=== PATIENT | female | born 1965 | race Caucasian/White ===

== ENCOUNTER 2017-12-16 13:06 | Emergency (ER) | payer BC, OTHER ==
[~2017-12-16] VITALS: Ht 160 cm; Wt 81.6 kg
[2017-12-16 13:20] VITALS: BP 150/89
--- NOTE | 2017-12-16 13:51 | NUR ---
PT IS A 52 YO F BIB FAMILY AFTER BEING REFFERED OVER FROM PCP THIS MORNING FOR U/S TO MAKE SURE SHE DOES NOT HAVE BLOOD CLOTS IN HER LEGS S/P SURGERY. PT HAD SPINAL SURGERY NOVEMBER 05, AND HAS SINCE HAD SOME BILATERAL LEG SWELLING. PT PRESENTS WITH BILATERAL ANKLE AND CALF SWELLING. +1 PITTING EDEMA ON THE ANKLE. PT REPORT CHILLS OFF AND ON, DENIES AT THIS TIME. DENIES N/V/D. AAOX4. GCS 15. RR EVEN AND UNLABORED, DENIES SOB. ER MD NOTIFIED. WILL CONTINUE TO MONITOR.
--- NOTE | 2017-12-16 13:57 | NUR ---
ULTRASOUND AT BEDSIDE AT THIS TIME. WILL CONTINUE TO MONITOR.
[2017-12-16 14:44] LABS: BASOPHILS % (AUTO) 0.2 % (0.0-2.0); EOSINOPHILS # (AUTO) 0.1 K/uL (0-0.4); EOSINOPHILS % (AUTO) 0.9 % (0.0-4.0); HEMATOCRIT 36.8 % (36-48); HEMOGLOBIN 12.1 g/dL (12.0-16.0); LYMPHOCYTES # (AUTO) 2.8 K/uL (2.5-16.5); LYMPHOCYTES % (AUTO) 33.6 % (20.5-51.1); MEAN CORPUSCULAR HEMOGLOBIN 31 pg (27-31); MEAN CORPUSCULAR HGB CONC 33 g/dL (33-37); MEAN CORPUSCULAR VOLUME 93.5 fL (80-94); MONOCYTES # (AUTO) 0.6 K/uL (0.8-1.0); MONOCYTES % (AUTO) 7.2 % (1.7-9.3); NEUTROPHILS # (AUTO) 4.9 K/uL (1.8-7.7); NEUTROPHILS % (AUTO) 58.1 % (42.2-75.2); PLATELET COUNT (AUTO) 280 K/uL (140-450); RED BLOOD CELL COUNT(AUTO) 3.94 MIL/uL (4.20-5.40); RED CELL DISTRIBUTION WIDTH 14.5 % (11.6-13.7); WHITE BLOOD COUNT (AUTO) 8.4 K/uL (4.8-10.8)
--- NOTE | 2017-12-16 14:50 | NUR ---
PT. RESTING COMFORTABLY IN BED, RR EVEN AND UNLABORED, ABLE TO VERBALIZE. WILL CONTINUE TO MONITOR.
[2017-12-16] MEDS ORDERED: FUROSEMIDE 20 MG TAB PO ONE (15:10)
[2017-12-16] MEDS ORDERED: KETOROLAC 30 MG/ML VIAL IM ONE (15:15)
[2017-12-16 15:16] LABS: PROTHROMBIN TIME 9.2 secs (10.8-13.4)
[2017-12-16 15:22] LABS: CARBON DIOXIDE 26.6 mmol/L (21-32); CREATININE 0.6 mg/dL (0.6-1.3); POTASSIUM 3.6 mmol/L (3.5-5.1)
[2017-12-16 15:30] LABS: ALBUMIN 3.6 g/dL (3.4-5.0); TOTAL BILIRUBIN 0.2 mg/dL (0.0-1.0)
[2017-12-16 15:40] VITALS: BP 140/80
--- NOTE | 2017-12-16 15:40 | NUR ---
Patient discharged with v/s stable. Written and verbal after care instructions given and explained. Patient alert, oriented and verbalized understanding of instructions. Ambulatory with steady gait. All questions addressed prior to discharge. ID band removed. Patient advised to follow up with PMD. Rx of LASIX 20 MG given. Patient educated on indication of medication including possible reaction and side effects. Opportunity to ask questions provided and answered.
== END 2017-12-16 15:40 | disposition home or self-care (01) ==
LOC: MED 13:06
DX: R60.0 Localized edema (principal); M79.604 Pain in right leg; M79.605 Pain in left leg; Z88.0 Allergy status to penicillin; Z88.2 Allergy status to sulfonamides
CPT/HCPCS: 36415; 80053; 83880; 85025; 85610; 85730; 93970; 96372; 99285; J1885; Q0092

== ENCOUNTER 2018-03-26 15:08 | Emergency (ER) | payer BC, OTHER ==
[~2018-03-26] VITALS: Ht 160 cm; Wt 86.2 kg
[2018-03-26 15:09] VITALS: BP 147/94
[2018-03-26] MEDS ORDERED: traMADol 50 MG TAB PO ONE (16:35)
[2018-03-26] MEDS ORDERED: IBUPROFEN 600 MG TAB PO ONE (16:35)
[2018-03-26] MEDS ORDERED: HYDROcodone/APAP 10/325 MG 1 TAB TAB PO STA (17:40)
[2018-03-26] MEDS ORDERED: KETOROLAC 60 MG/2 ML VIAL IM ONE (18:25)
[2018-03-26 18:58] VITALS: BP 122/78
== END 2018-03-26 18:58 | disposition home or self-care (01) ==
LOC: MED 15:08
DX: G89.29 Other chronic pain (principal); M54.5 Low back pain; Z88.0 Allergy status to penicillin; Z88.2 Allergy status to sulfonamides
CPT/HCPCS: 96372; 99284; J1885

== ENCOUNTER 2019-02-05 21:41 | Emergency (ER) | payer BC ==
[~2019-02-05] VITALS: Ht 160 cm; Wt 76.2 kg
[2019-02-05 21:45] VITALS: BP 170/90
[2019-02-05] MEDS ORDERED: KETOROLAC 60 MG/2 ML VIAL IM ONE (23:35)
[2019-02-05 23:55] VITALS: BP 170/90
== END 2019-02-05 23:55 | disposition home or self-care (01) ==
LOC: MED 21:41
DX: B35.3 Tinea pedis (principal); L03.115 Cellulitis of right lower limb; Z88.0 Allergy status to penicillin; Z88.2 Allergy status to sulfonamides; I10 Essential (primary) hypertension; Z87.39 Personal history of other diseases of the musculoskeletal system and connective tissue; Z98.890 Other specified postprocedural states
CPT/HCPCS: 73630; 96372; 99283; J1885

== ENCOUNTER 2020-11-05 17:13 | Emergency (ER) | payer BC ==
[~2020-11-05] VITALS: Ht 160 cm; Wt 79.4 kg
[2020-11-05 17:40] VITALS: BP 164/101
--- NOTE | 2020-11-05 17:47 | NUR ---
EDMOND. HANDED ON URINE CUP.
--- NOTE | 2020-11-05 18:50 | NUR ---
PT AMB TO BED 6
--- NOTE | 2020-11-05 18:52 | NUR ---
YOSSI Noland is evaluating patient at bedside.
--- NOTE | 2020-11-05 19:07 | NUR ---
Dr. Darling is evaluating the patient at bedside.
[2020-11-05] MEDS ORDERED: KETOROLAC 60 MG/2 ML VIAL IM ONE (19:10)
--- NOTE | 2020-11-05 19:31 | NUR ---
PT BEING TAKEN TO XRAY VIA [facility].
[2020-11-05] MEDS ORDERED: ACET-9529 PO (21:10)
[2020-11-05 21:28] VITALS: BP 162/93
== END 2020-11-05 21:28 | disposition home or self-care (01) ==
LOC: MED 17:13
DX: M54.5 Low back pain (principal); G89.29 Other chronic pain; M54.2 Cervicalgia; I10 Essential (primary) hypertension; Z98.890 Other specified postprocedural states; Z79.891 Long term (current) use of opiate analgesic; Z88.0 Allergy status to penicillin; Z88.2 Allergy status to sulfonamides
CPT/HCPCS: 72040; 72072; 72100; 81002; 87086; 96372; 99284; J1885

== ENCOUNTER 2021-03-25 15:22 | Emergency (ER) | payer BC ==
[~2021-03-25] VITALS: Ht 160 cm; Wt 81.6 kg
[~2021-03-25 15:22] MED LIST: ACET-9529 PO
[2021-03-25 15:43] VITALS: BP 191/101
--- NOTE | 2021-03-25 16:15 | NUR ---
REFER FROM CLINIC FOR LOWER EXTREMITY SWELLING AND SOB S/P LUMBAR SPINE SURGERY. C/O RIGHT LEG & RIGHT FOOT PAIN & SWELLING X YESTERDAY. O2 SAT 100%, BP 191/101 AT THIS TIME. PMH: SPINAL CORD SURGERY , HLD
[2021-03-25] MEDS ORDERED: KETOROLAC 30 MG/ML VIAL IM ONE (16:20)
--- NOTE | 2021-03-25 16:45 | NUR ---
56 Y/O F HERE FOR R AND L FOOT SWELLING SINCE YESTERDAY. SHE HAD LUMBAR SPINE SURGERY A MONTH AGO AND WENT TO CLINIC TODAY TO GET CHECKED AND THE CLINIC TOLD HER TO GO TO ED. SHE HAS R ANCKLE SWELLING MORE THEN A LEFT SIDE. SHE CURRENTLY HAS HIGH BP OF 191/101.
--- NOTE | 2021-03-25 16:49 | NUR ---
XRAY AT BEDSIDE.
--- NOTE | 2021-03-25 16:50 | NUR ---
ULTRASOUND AT BEDSIDE.
[2021-03-25 17:11] LABS: BASOPHILS % (AUTO) 0.4 % (0.0-2.0); EOSINOPHILS % (AUTO) 0.4 % (0.0-4.0); HEMATOCRIT 38.3 % (36-48); HEMOGLOBIN 12.7 g/dL (12.0-16.0); LYMPHOCYTES # (AUTO) 1.8 K/uL (2.5-16.5); LYMPHOCYTES % (AUTO) 21.6 % (20.5-51.1); MEAN CORPUSCULAR HEMOGLOBIN 31 pg (27-31); MEAN CORPUSCULAR HGB CONC 33 g/dL (33-37); MONOCYTES # (AUTO) 0.4 K/uL (0.8-1.0); MONOCYTES % (AUTO) 4.5 % (1.7-9.3); NEUTROPHILS # (AUTO) 6.1 K/uL (1.8-7.7); NEUTROPHILS % (AUTO) 73.1 % (42.2-75.2); PLATELET COUNT (AUTO) 260 K/uL (140-450); RED BLOOD CELL COUNT(AUTO) 4.16 MIL/uL (4.20-5.40); RED CELL DISTRIBUTION WIDTH 13.9 % (11.6-13.7); WHITE BLOOD COUNT (AUTO) 8.4 K/uL (4.8-10.8)
[2021-03-25 17:26] VITALS: BP 172/76
[2021-03-25 17:32] LABS: ANION GAP 11.4 (8-16); CARBON DIOXIDE 29.4 mmol/L (21-32); CREATININE 0.7 mg/dL (0.6-1.3); POTASSIUM 3.8 mmol/L (3.5-5.1); TOTAL BILIRUBIN 0.4 mg/dL (0.0-1.0)
--- NOTE | 2021-03-25 19:05 | NUR ---
Patient discharged with v/s stable. Written and verbal after care instructions given and explained. Patient verbalized understanding. Ambulatory with steady gait. All questions addressed prior to discharge. Advised to follow up with PMD.
--- NOTE | 2021-03-25 19:06 | NUR ---
The patient's care was reviewed and supervised by Jyothi Chung RN.
== END 2021-03-25 19:05 | disposition home or self-care (01) ==
LOC: MED 15:22
DX: R22.41 Localized swelling, mass and lump, right lower limb (principal); R06.02 Shortness of breath; I10 Essential (primary) hypertension; Z98.890 Other specified postprocedural states; Z79.891 Long term (current) use of opiate analgesic; Z88.0 Allergy status to penicillin; Z88.2 Allergy status to sulfonamides
CPT/HCPCS: 36415; 71045; 80053; 83880; 84484; 85025; 93005; 93971; 96372; 99285; J1885; Q0092

== ENCOUNTER 2022-12-28 22:15 | Emergency (ER) | payer BC ==
[~2022-12-28] VITALS: Ht 160 cm; Wt 68.0 kg
[2022-12-28 22:57] VITALS: BP 189/90; PULSE 58; RESP 20; TEMP 98; O2SAT 98
[2022-12-28] MEDS ORDERED: FLUORESCEIN OPTH STRIP 1 MG OP ONE (23:40)
[2022-12-28] MEDS ORDERED: TETRACAINE HCL/PF 0.5% OPTH 4 ML BTL OP ONE (23:40)
[2022-12-28] MEDS ORDERED: KETOROLAC 30 MG/ML VIAL IM ONE (23:50)
[2022-12-29] MEDS ORDERED: ERYTHROMYCIN 0.5% OPTH OINT 1 GM TUBE OP ONE (00:40)
[2022-12-29] MEDS ORDERED: FLUORESCEIN OPTH STRIP 1 MG ONE (01:57)
[2022-12-29] MEDS ORDERED: TETRACAINE HCL/PF 0.5% OPTH 4 ML BTL OP ONE (02:10)
[2022-12-29] MEDS ORDERED: ERYT2GEL22 TP (02:44)
== END 2022-12-29 03:00 | disposition home or self-care (01) ==
LOC: MED 22:15
DX: H16.002 Unspecified corneal ulcer, left eye (principal); H10.212 Acute toxic conjunctivitis, left eye; I10 Essential (primary) hypertension; Z88.0 Allergy status to penicillin; Z88.2 Allergy status to sulfonamides; Z79.899 Other long term (current) drug therapy
CPT/HCPCS: 96372; 99283; J1885

== ENCOUNTER 2023-04-18 14:39 | Emergency (ER) | payer BC, OTHER ==
[~2023-04-18] VITALS: Ht 160 cm; Wt 69.6 kg
[~2023-04-18 14:39] MED LIST changes: +ERYT2GEL22 TP
[2023-04-18 15:01] VITALS: BP 167/87; PULSE 74; RESP 17; TEMP 97.6; O2SAT 99
[2023-04-18] MEDS ORDERED: KETOROLAC 30 MG/ML VIAL IM ONE (15:55)
[2023-04-18] MEDS ORDERED: DICYCLOMINE HCL LIQUID 20 MG, ALUMINUM HYD/MAG/SIMETHICONE 30 ML, LIDOCAINE VISCOUS 2% ... PO ONE ×3 (15:55)
[2023-04-18] MEDS ORDERED: DICYCLOMINE HCL LIQUID 10 MG/5 ML UDC ONE (15:58)
[2023-04-18] MEDS ORDERED: ALUMINUM HYD/MAG/SIMETHICONE 30 ML UDC ONE (15:58)
[2023-04-18 16:09] LABS: BASOPHILS % (AUTO) 0.6 % (0.0-2.0); EOSINOPHILS % (AUTO) 0.4 % (0.0-4.0); HEMATOCRIT 42.7 % (36-48); HEMOGLOBIN 14.3 g/dL (12.0-16.0); LYMPHOCYTES # (AUTO) 2.2 K/uL (2.5-16.5); MEAN CORPUSCULAR HEMOGLOBIN 32 pg (27-31); MEAN CORPUSCULAR HGB CONC 33 g/dL (33-37); MEAN CORPUSCULAR VOLUME 94.2 fL (80-94); MONOCYTES # (AUTO) 0.3 K/uL (0.8-1.0); MONOCYTES % (AUTO) 4.8 % (1.7-9.3); NEUTROPHILS # (AUTO) 3.1 K/uL (1.8-7.7); NEUTROPHILS % (AUTO) 55.2 % (42.2-75.2); PLATELET COUNT (AUTO) 228 K/uL (140-450); RED BLOOD CELL COUNT(AUTO) 4.53 MIL/uL (4.20-5.40); RED CELL DISTRIBUTION WIDTH 13.8 % (11.6-13.7); WHITE BLOOD COUNT (AUTO) 5.6 K/uL (4.8-10.8)
[2023-04-18 16:27] LABS: ALANINE AMINOTRANSFERASE 24 U/L (12-78); ALBUMIN 4.1 g/dL (3.4-5.0); ALKALINE PHOSPHATASE 93 U/L (50-136); ANION GAP 14.9 (8-16); ASPARTATE AMINOTRANSFERASE 24 U/L (15-37); CALCIUM 9.2 mg/dL (8.5-10.1); CARBON DIOXIDE 26.2 mmol/L (21-32); CHLORIDE 105 mmol/L (98-107); CREATININE 0.7 mg/dL (0.6-1.3); GFR ARICAN-AMERICAN 110 mL/min (>90); GFR NON ARICAN-AMERICAN 91 mL/min (>90); GLUCOSE 89 mg/dL (74-106); LIPASE 16 U/L (16-77); POTASSIUM 3.1 mmol/L (3.5-5.1); SODIUM SERUM 143 mmol/L (136-145); TOTAL BILIRUBIN 0.4 mg/dL (0.0-1.0); TOTAL PROTEIN, SERUM 7.3 g/dL (6.4-8.2); UREA NITROGEN, BLOOD 19 mg/dL (7-18)
[2023-04-18 16:56] LABS: FLU A ANTIGEN negative (NEGATIVE); FLU B ANTIGEN NEGATIVE (NEGATIVE)
[2023-04-18] MEDS ORDERED: POTASSIUM CHLORIDE 10 MEQ TABER PO ONE (17:05)
[2023-04-18 17:58] LABS: APPEARANCE,URINE HAZY (CLEAR); BILIRUBIN,URINE NEGATIVE (NEGATIVE); BLOOD, URINE NEGATIVE (NEGATIVE); COLOR,URINE YELLOW (YELLOW); LEUKOCYTE ESTERASE ,URINE NEGATIVE (NEGATIVE); NITRITE, URINE NEGATIVE (NEGATIVE); PH,URINE 7.5 (5.0-9.0); PROTEIN,URINE NEGATIVE (NEGATIVE); UGLUCOSE NEGATIVE (NEGATIVE); UROBILINOGEN,URINE 0.2 EU/dL (0.2 - 1)
[2023-04-18] MEDS ORDERED: LIDOCAINE 5% 1 EA PATCH TP ONE (18:15)
[2023-04-18] MEDS ORDERED: HYDROcodone/APAP 5/325 MG 1 TAB TAB PO ONE (18:15)
[2023-04-18] MEDS ORDERED: MAG355OR2 PO (18:23)
[2023-04-18] MEDS ORDERED: FAMO-90 PO (18:23)
[2023-04-18] MEDS ORDERED: DICL100G32 TP (18:23)
[2023-04-18] MEDS ORDERED: SUCR1TAB35 PO (18:35)
[2023-04-18 18:40] VITALS: BP 169/86; PULSE 68; RESP 15; TEMP 97.6; O2SAT 100
== END 2023-04-18 18:40 | disposition home or self-care (01) ==
LOC: MED 14:39
DX: K21.00 Gastro-esophageal reflux disease with esophagitis, without bleeding (principal); R07.89 Other chest pain; Z20.822 Contact with and (suspected) exposure to COVID-19; I10 Essential (primary) hypertension; Z87.448 Personal history of other diseases of urinary system; Z79.899 Other long term (current) drug therapy; Z79.2 Long term (current) use of antibiotics; Z88.0 Allergy status to penicillin; Z88.2 Allergy status to sulfonamides
CPT/HCPCS: 36415; 71045; 80053; 81003; 83690; 84484; 85025; 87081; 87426; 87804; 93005; 96372; 99285; J1885; Q0092

== ENCOUNTER 2023-12-31 07:25 | Emergency (ER) | payer BC, OTHER ==
[~2023-12-31] VITALS: Ht 160 cm; Wt 71.7 kg
[~2023-12-31 07:25] MED LIST changes: +DICL100G32 TP; +FAMO-90 PO; +MAG355OR2 PO; +SUCR-3 PO
[2023-12-31 07:28] VITALS: BP 157/91; PULSE 74; RESP 15; TEMP 97.8; O2SAT 99
[2023-12-31 08:12] LABS: APPEARANCE,URINE CLEAR (CLEAR); BILIRUBIN,URINE NEGATIVE (NEGATIVE); BLOOD, URINE NEGATIVE (NEGATIVE); COLOR,URINE YELLOW (YELLOW); LEUKOCYTE ESTERASE ,URINE NEGATIVE (NEGATIVE); NITRITE, URINE NEGATIVE (NEGATIVE); PH,URINE 6.5 (5.0-9.0); PROTEIN,URINE NEGATIVE (NEGATIVE); UGLUCOSE NEGATIVE (NEGATIVE); UROBILINOGEN,URINE 0.2 EU/dL (0.2 - 1)
[2023-12-31 08:44] LABS: BASOPHILS % (AUTO) 0.3 % (0.0-2.0); EOSINOPHILS # (AUTO) 0.1 K/uL (0-0.4); EOSINOPHILS % (AUTO) 0.7 % (0.0-4.0); HEMATOCRIT 41.8 % (36-48); HEMOGLOBIN 13.7 g/dL (12.0-16.0); LYMPHOCYTES # (AUTO) 2.5 K/uL (2.5-16.5); LYMPHOCYTES % (AUTO) 32.6 % (20.5-51.1); MEAN CORPUSCULAR HEMOGLOBIN 31 pg (27-31); MEAN CORPUSCULAR HGB CONC 33 g/dL (33-37); MEAN CORPUSCULAR VOLUME 95.9 fL (80-94); MONOCYTES # (AUTO) 0.5 K/uL (0.8-1.0); MONOCYTES % (AUTO) 6.6 % (1.7-9.3); NEUTROPHILS # (AUTO) 4.6 K/uL (1.8-7.7); NEUTROPHILS % (AUTO) 59.8 % (42.2-75.2); PLATELET COUNT (AUTO) 214 K/uL (140-450); RED BLOOD CELL COUNT(AUTO) 4.36 MIL/uL (4.20-5.40); RED CELL DISTRIBUTION WIDTH 15.2 % (11.6-13.7); WHITE BLOOD COUNT (AUTO) 7.7 K/uL (4.8-10.8)
[2023-12-31 08:51] LABS: CALCIUM 9.2 mg/dL (8.5-10.1); CARBON DIOXIDE 32.9 mmol/L (21-32); CREATININE 0.7 mg/dL (0.6-1.3); POTASSIUM 3.9 mmol/L (3.5-5.1)
[2023-12-31] MEDS: KETOROLAC 30 MG/ML VIAL IM ONE (09:12)
[2023-12-31 09:16] VITALS: BP 151/87; PULSE 69; RESP 16; TEMP 97.8; O2SAT 99
== END 2023-12-31 09:16 | disposition home or self-care (01) ==
LOC: MED 07:25
DX: M54.50 Low back pain, unspecified (principal); G89.29 Other chronic pain; R53.1 Weakness; M25.552 Pain in left hip; I10 Essential (primary) hypertension; Z87.448 Personal history of other diseases of urinary system; Z79.899 Other long term (current) drug therapy; Z88.0 Allergy status to penicillin; Z88.2 Allergy status to sulfonamides
CPT/HCPCS: 36415; 73502; 80048; 81003; 85025; 96372; 99284; J1885